=== PATIENT | male | born 1945 | race Caucasian/White ===

== ENCOUNTER 2017-09-06 12:13 | Emergency (ER) | payer MEDICARE, OTHER ==
[2017-09-06] MEDS ORDERED: Diphtheria,Pertussis(Acell),Tetanus Vaccine 0.5 ML SDV IM ONE (13:02)
[2017-09-06] MEDS ORDERED: Lidocaine 1% 50 ML MDV INJECT STA (13:05)
--- NOTE | 2017-09-06 13:11 | EDM.PDOC ---
ED HPI GENERAL MEDICAL PROBLEM - General Chief Complaint: Laceration Stated Complaint: FISH HOOK RT THUMB Time Seen by Provider: 09/06/17 12:55 Source of Information: Reports: Patient, RN History Limitations: Reports: No Limitations - History of Present Illness INITIAL COMMENTS - FREE TEXT/NARRATIVE: 71 yo male got a single shu of a treble hook lodged in his R thumb before arrival. Here for removal. Is not UTD on his tetanus. Onset: Today Onset Date: 09/06/17 Onset Time: 11:30 Duration: Minutes:, Constant Location: Reports: Upper Extremity, Right Quality: Reports: Dull Severity: Mild Improves with: Reports: Rest Worsens with: Reports: Other (bumping hook) Context: Reports: Other (fishing) Associated Symptoms: Reports: No Other Symptoms Treatments MIS MANAGER: Reports: Other (see below) (cut single hook off of the treble.) - Related Data Allergies Allergy/AdvReac Type Severity Reaction Status Date / Time lisinopril Allergy Swollen Verified 09/06/17 12:36 Tongue Home Meds: Home Meds *Lasix 1 tab PO DAILY 09/06/17 [History] *Metoprolol 1 tab PO DAILY 09/06/17 [History] *Potassium Citrate 1 tab PO DAILY 09/06/17 [History] Allopurinol [Zyloprim] 300 mg PO DAILY 09/06/17 [History] Aspirin 1 tab PO DAILY 09/06/17 [History] Fish Oil/[place]-3 Fatty Acids [Fish Oil 1,000 MG] 1 tab PO DAILY 09/06/17 [ History] Gluc/Brant-Msm#2/C/D3/Surinder/Born [Sejkcmudbz-Jaiiqdmydea-XTF] 1 tab PO BID [History] Linagliptin [Tradjenta] 1 tab PO DAILY 09/06/17 [History] hydrALAZINE [Apresoline] 1 tab PO TID 09/06/17 [History] Past Medical History HEENT History: Reports: Impaired Vision Cardiovascular History: Reports: High Cholesterol, Hypertension Genitourinary History: Reports: Chronic Renal Insuffiency, Renal Calculus, Other (See Below) Other Genitourinary History: GFR @ 36 Musculoskeletal History: Reports: Arthritis, Fracture, Gout, Other (See Below) Other Musculoskeletal History: sciatica Endocrine/Metabolic History: Reports: Diabetes, Type II - Past Surgical History HEENT Surgical History: Reports: Other (See Below) Other HEENT Surgeries/Procedures: parathyroid removal Musculoskeletal Surgical History: Reports: Knee Replacement Social & Family History - Alcohol Use Days Per Week of Alcohol Use: 6 Number of Drinks Per Day: 2 Total Drinks Per Week: 12 - Recreational Drug Use Recreational Drug Use: No ED ROS GENERAL - Review of Systems Review Of Systems: See Below Constitutional: Reports: No Symptoms Musculoskeletal: Reports: Hand Pain (thumb pain) Skin: Reports: Wound (puncture) Neurological: Reports: No Symptoms ED EXAM, SKIN/RASH Exam: See Below Exam Limited By: No Limitations General Appearance: Alert, WD/WN, No Apparent Distress Ears: Hearing Grossly Normal Nose: Normal Inspection Throat/Mouth: Normal Voice, No Airway Compromise Head: Atraumatic, Normocephalic Neck: Normal Inspection Respiratory/Chest: No Respiratory Distress, No Accessory Muscle Use Extremities: Other (fish hook in R thumb) Neurological: Alert, Oriented, CN II-XII Intact, Normal Cognition, No Motor/ Sensory Deficits Psychiatric: Normal Affect, Normal Mood Skin: Warm, Dry, Normal Color, No Rash, Wound/Incision (fish hook single shu imbedded in R thumb distally) Location, Skin: Upper Extremity, Right Characteristics: Other (puncture) Associated features: Tenderness. No: Warmth, Swelling, Induration Lymphatic: No Adenopathy ED SKIN PROCEDURES - Foreign Body Removal Consent Obtained:: Patient Performing Doctor:: Compa Zavala Foreign Body Other Location Comment:: Fish hook R thumb Anesthesia Type: Local (1% lidocaine) Findings:: Hook removed by covering the shu with a #18 g needle and backing out the hook. Complications:: No Course - Vital Signs Last Recorded V/S: Last Vital Signs Temp 36.7 C 09/06/17 12:51 Pulse 78 09/06/17 12:51 Resp 16 09/06/17 12:51 BP 138/73 09/06/17 12:51 Pulse Ox 94 L 09/06/17 12:51 - Orders/Labs/Meds Orders: Active Orders 24 hr Category Date Time Status Vaccines to be Administered [RC] PER UNIT ROUTINE Care 09/06/17 13:02 Active Lidocaine 1% [Xylocaine 1%] Med 09/06/17 13:05 Stat 5 ml INJECT NOW STA Meds: Medications Discontinued Medications Generic Name Dose Route Start Last Admin Trade Name Freq PRN Reason Stop Dose Admin Diphtheria/Tetanus/Acell Pertussis 0.5 ml 09/06/17 13:02 Adacel IM 09/06/17 13:03 .ONCE ONE Departure - Departure Time of Disposition: 13:30 Disposition: Home, Self-Care 01 Condition: Good Clinical Impression: Fish hook injury of right thumb Qualifiers: Encounter type: initial encounter Qualified Code(s): S69.91XA - Unspecified injury of right wrist, hand and finger(s), initial encounter - Discharge Information Referrals: PCP,None [Primary Care Provider] - - My Orders Last 24 Hours: My Active Orders 09/06/17 13:02 Vaccines to be Administered [RC] PER UNIT ROUTINE 09/06/17 13:05 Lidocaine 1% [Xylocaine 1%] 5 ml INJECT NOW STA - Assessment/Plan Last 24 Hours: My Active Orders 09/06/17 13:02 Vaccines to be Administered [RC] PER UNIT ROUTINE 09/06/17 13:05 Lidocaine 1% [Xylocaine 1%] 5 ml INJECT NOW STA
[2017-09-06] MEDS ORDERED: Bacitracin Oint 1 GM U/D Packet TOP ONE (13:26)
== END 2017-09-06 13:39 | disposition home or self-care (01) ==
LOC: JP.ED 12:13
DX: S60.351A Superficial foreign body of right thumb, initial encounter (principal); I12.9 Hypertensive chronic kidney disease with stage 1 through stage 4 chronic kidney disease, or unspecified chronic kidney disease; N18.9 Chronic kidney disease, unspecified; Z79.899 Other long term (current) drug therapy; E11.22 Type 2 diabetes mellitus with diabetic chronic kidney disease; Z88.8 Allergy status to other drugs, medicaments and biological substances; Z23 Encounter for immunization; W45.8XXA Other foreign body or object entering through skin, initial encounter
CPT/HCPCS: 90471; 90715; 99283-25